=== PATIENT | female | born 1965 | race Caucasian/White ===

== ENCOUNTER → 2024-06-12 | Outpatient (CLI) | payer OTHER ==
[2024-06-12 10:07] LABS: African American GFR (CKD) 73 (>60 ml/min/1.73 sqM); Anion Gap 7 mmol/L; Blood Urea Nitrogen 15 mg/dL (7-17); Calcium 9.4 mg/dL (8.4-10.2); Carbon Dioxide 33 mmol/L (22-30); Chloride 99 mmol/L (98-107); Glucose 116 mg/dL (74-99); Non-African American GFR(CKD) 63 (>60 ml/min/1.73 sqM); Potassium 3.9 mmol/L (3.5-5.1); Sodium 139 mmol/L (137-145)
[2024-06-12 11:25] LABS: T4, Free (Free Thyroxine) 2.05 ng/dL (0.78-2.19)
[2024-06-12 15:38] LABS: Thyroid Peroxidase Antibodies 61.5 U/mL (0.0-33.0)
[2024-06-13 01:04] LABS: ACTH 10.6 pg/mL (0.00-45.99)
[2024-06-20 16:38] LABS: Metanephrine, Free <25 pg/mL (< OR = 57); Normetanephrine, Free 143 pg/mL (< OR = 148); Total, Free (MN + NMN) 143 pg/mL (< OR = 205)
== END | disposition home or self-care (01) ==
LOC: LABT 09:12
PROVIDERS: ATTEND Internal Medicine
DX: E03.9 Hypothyroidism, unspecified (principal); E27.9 Disorder of adrenal gland, unspecified
CPT/HCPCS: 80048; 82024; 82088; 82533; 82626; 83835; 84244; 84439; 84443; 86376

== ENCOUNTER → 2024-06-24 | Outpatient (CLI) | payer OTHER ==
[2024-06-24 13:58] LABS: DHEA Sulfate <39.0 UG/DL (39.0-800.0)
[2024-06-24 14:14] LABS: Estradiol <20.0 pg/mL
[2024-06-24 15:01] LABS: Follicle Stimulating Hormone 47.5 mIU/mL; Luteinizing Hormone 23.9 mIU/mL
[2024-06-25 08:41] LABS: ACTH <1.50 pg/mL (0.00-45.99)
== END | disposition home or self-care (01) ==
LOC: LABWHC1 08:17
PROVIDERS: ATTEND Internal Medicine
DX: E27.9 Disorder of adrenal gland, unspecified (principal); R23.2 Flushing
CPT/HCPCS: 36415; 82024; 82306; 82533; 82627; 82670; 83001; 83002

== ENCOUNTER → 2024-07-19 | Outpatient (CLI) | payer OTHER ==
--- NOTE | 2024-07-19 12:02 | XR ---
EXAMINATION TYPE: XR hand 2 views RT DATE OF EXAM: 07/19/2024 11:48 AM COMPARISON: None CLINICAL INDICATION: Female, 59 years old with history of M79.641 R hand pain; PHH, pain FINDINGS: No marginal erosions or soft tissue calcifications are seen. There may be mild periarticular osteopen ia. No acute fracture, subluxation, dislocation. IMPRESSION: No acute osseous abnormality seen. [facility], Workstation: [facility], 07/19/2024 11:59 AM
--- NOTE | 2024-07-19 12:03 | XR ---
EXAMINATION TYPE: XR Hip 2 views RT and AP Pelvis DATE OF EXAM: 07/19/2024 11:48 AM COMPARISON: None CLINICAL INDICATION: Female, 59 years old with history of M25.551 hip pain; PHH, pain FINDINGS: SI joints appear symmetric and intact. Mild degenerative change at the pubic symphysis. There is mode rate degenerative change at the right hip with marginal spurring and axial joint space narrowing. Num erous pelvic phleboliths. No acute fracture, subluxation or dislocation seen. IMPRESSION: Moderate right hip OA. Degenerative change at the pubic symphysis. No acute osseous abnormality seen. [facility], Workstation: [facility], 07/19/2024 12:00 PM
== END | disposition home or self-care (01) ==
LOC: RADXRMAIN 11:23
PROVIDERS: ATTEND Internal Medicine
DX: M16.11 Unilateral primary osteoarthritis, right hip (principal); M79.641 Pain in right hand
CPT/HCPCS: 73502

== ENCOUNTER → 2024-09-08 | Outpatient (CLI) | payer OTHER ==
--- NOTE | 2024-09-10 22:55 | MR ---
EXAMINATION TYPE: MR lumbar spine wo con DATE OF EXAM: 09/08/2024 COMPARISON: Lumbar spine x-ray July 31, 2024 HISTORY: Lower back, RLE radic, difficulty walking. TECHNIQUE: Multiplanar, multisequence imaging of the lumbar spine is performed without IV contrast. FINDINGS: Sagittal images of the lumbar spine show vertebral body heights and alignment to appear sat isfactory. Multilevel disc desiccation with relative sparing of the L1-L2 disc space. Disc space heig hts are maintained. The conus medullaris is normal in position and signal ending superior L1 level. Osseous hemangiomas at T12, left L5, and L2 levels are seen. Axial images show T12-L1 to L2-L3 level to appear within normal limits. Axial images at L3-L4 level shows mild broad-based disc bulge and mild facet arthropathy but the spin al canal is preserved. Axial images at L4-L5 level show moderate to severe facet arthropathy and ligamentum flavum hypertrop hy effacing the posterior lateral thecal sac left greater than right. There is mild broad disc bulge minimally effaces the anterior thecal sac. There is mild/moderate bilateral neural foraminal narrowin g. Axial images at the L5-S1 level shows moderate facet arthropathy bilaterally. There is [id number] te broad disc bulge. Bilateral neural foramina are patent. Spinal canal. Paraspinal muscle bulk is ma intained. IMPRESSION: Multilevel degenerative changes in the mid to lower lumbar spine most prominent at L4-L5 as detailed above. No significant disc herniation to account for patient's symptoms of right lower ex tremity radiculopathy. [facility], , 09/10/2024 10:52 PM
== END | disposition home or self-care (01) ==
LOC: RADMRIMAIN 09:59
PROVIDERS: ATTEND Orthopaedic Surgery
DX: M47.26 Other spondylosis with radiculopathy, lumbar region (principal); M51.16 Intervertebral disc disorders with radiculopathy, lumbar region; M99.73 Connective tissue and disc stenosis of intervertebral foramina of lumbar region
CPT/HCPCS: 72148